=== PATIENT | male | born 1980 | race Caucasian/White ===

== ENCOUNTER 2018-02-07 17:28 | Emergency (ER) | payer SELFPAY ==
[~2018-02-07] VITALS: Ht 170.2 cm; Wt 100.0 kg
[2018-02-07] MEDS ORDERED: RISP2 PO (17:34)
[2018-02-07] MEDS ORDERED: SERT100T12 PO (17:34)
[2018-02-07] MEDS ORDERED: LORazepam 1 MG TABLET PO ONE (18:30)
[2018-02-07 19:51] VITALS: BP 120/87
== END 2018-02-07 20:05 | disposition home or self-care (01) ==
LOC: EMS 17:30
DX: F10.239 Alcohol dependence with withdrawal, unspecified (principal); F41.9 Anxiety disorder, unspecified; F32.9 Major depressive disorder, single episode, unspecified; F17.210 Nicotine dependence, cigarettes, uncomplicated; Z88.0 Allergy status to penicillin; Z79.899 Other long term (current) drug therapy; Y90.9 Presence of alcohol in blood, level not specified
CPT/HCPCS: 99283